=== PATIENT | male | born 1990 | race Caucasian/White ===

== ENCOUNTER 2018-09-08 15:39 | Emergency (ER) | payer OTHER ==
[~2018-09-08] VITALS: Ht 182.9 cm; Wt 95.3 kg
[2018-09-08 15:43] VITALS: BP 130/83
[2018-09-08] MEDS ORDERED: NKM (15:48)
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
[2018-09-08] MEDS: Bacitracin Oint UD TOPIC ONE (17:04)
[2018-09-08] MEDS: Ketorolac 30mg Inj IM ONE (17:05)
[2018-09-08] MEDS ORDERED: TYLENOL EXTRA500 MG ORAL (18:30)
[2018-09-08] MEDS ORDERED: LIDOCAINE700 M1 TP (18:30)
[2018-09-08] MEDS ORDERED: ROBAXIN500 MG PO (18:30)
[2018-09-08] MEDS ORDERED: BACITRACIN-P28.35 GM TP (18:30)
[2018-09-08 19:00] VITALS: BP 125/81
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
--- NOTE | 2018-09-09 15:58 | Diagnostic Imaging Report ---
Indication: Right rib pain Technique: One view of the chest, 2 views of the right ribs Comparison: none Findings: No acute fractures. No pneumothorax. The lungs and pleural spaces are clear. The heart size is normal. Impression: Negative
--- NOTE | 2018-09-09 16:01 | Diagnostic Imaging Report ---
Indication: Pain Technique: 3 views of the cervical spine Comparison: none Findings: Bony alignment is normal. No prevertebral soft tissue swelling. Vertebral body heights are preserved. Disc spaces are preserved. Impression: Negative
--- NOTE | 2018-09-09 16:01 | Diagnostic Imaging Report ---
Indications: Right knee pain Technique: Three views of the right knee Comparison: None Findings: No acute fractures. No dislocations. Joint spaces are preserved. No radiopaque foreign body. Normal mineralization. Impression: No acute process
== END 2018-09-08 19:00 | disposition home or self-care (01) ==
LOC: EMR 16:15
DX: S22.31XA Fracture of one rib, right side, initial encounter for closed fracture (principal); S09.90XA Unspecified injury of head, initial encounter; S80.01XA Contusion of right knee, initial encounter; S13.9XXA Sprain of joints and ligaments of unspecified parts of neck, initial encounter; V00.831A Fall from motorized mobility scooter, initial encounter; W20.8XXA Other cause of strike by thrown, projected or falling object, initial encounter; Y92.488 Other paved roadways as the place of occurrence of the external cause; R07.9 Chest pain, unspecified
CPT/HCPCS: 70450; 71101; 72040; 73562; 96372; 99284; J1885